=== PATIENT | female | born 2000 ===

== ENCOUNTER 2021-04-07 12:19 | Emergency (ER) | payer OTHER ==
[~2021-04-07] VITALS: Ht 185.4 cm; Wt 59.0 kg
--- NOTE | 2021-04-07 12:42 | NUR ---
Received report from ED RN. Patient recived Covid test results positive on 04/06. Today worried that asthma will "act up"in ED to request steroid ,nebulizer prescriptions. A,A, oriented x 4 resides in residential care. Speech in clear full, 12-14 word sentences.
[2021-04-07] MEDS ORDERED: ALBU0.63 NEB (12:47)
[2021-04-07] MEDS ORDERED: PRED20TA PO (12:55)
[2021-04-07 13:25] VITALS: BP 130/78
== END 2021-04-07 13:12 | disposition home or self-care (01) ==
LOC: ER 12:23
DX: U07.1 COVID-19 (principal); F17.210 Nicotine dependence, cigarettes, uncomplicated; J45.909 Unspecified asthma, uncomplicated
CPT/HCPCS: 71045; A4663